=== PATIENT | male | born 1990 | race Two or more races ===

== ENCOUNTER 2021-09-03 15:36 | Emergency (ER) | payer SELFPAY ==
[~2021-09-03] VITALS: Ht 170.2 cm; Wt 77.1 kg
[2021-09-03 15:48] VITALS: BP 148/71
[2021-09-03] MEDS ORDERED: cefTRIAXone SOD 1,000 MG VL IM ONE (18:30)
== END 2021-09-03 18:57 | disposition home or self-care (01) ==
LOC: ER 15:36 → EDBD 15:36 → ER 18:57
DX: S01.01XA Laceration without foreign body of scalp, initial encounter (principal); S01.81XA Laceration without foreign body of other part of head, initial encounter; F10.10 Alcohol abuse, uncomplicated; W22.8XXA Striking against or struck by other objects, initial encounter; Y93.89 Activity, other specified; Y92.89 Other specified places as the place of occurrence of the external cause; Y99.8 Other external cause status
CPT/HCPCS: 12001; 12011; 70450; 70486; 72125; 96372; 99284; J0696

== ENCOUNTER 2021-09-30 21:13 | Emergency (ER) | payer MEDICAID, OTHER ==
[~2021-09-30] VITALS: Ht 170.2 cm; Wt 72.6 kg
[2021-09-30 21:15] VITALS: BP 122/65
== END 2021-09-30 23:17 | disposition home or self-care (01) ==
LOC: ER 21:16
DX: S01.112D Laceration without foreign body of left eyelid and periocular area, subsequent encounter (principal); S01.01XD Laceration without foreign body of scalp, subsequent encounter; X58.XXXD Exposure to other specified factors, subsequent encounter

== ENCOUNTER 2024-10-31 21:45 | Inpatient (IN) | payer MEDICAID ==
[~2024-10-31] VITALS: Ht 167.6 cm; Wt 68.2 kg
--- NOTE | 2024-10-31 22:02 | ED.PDOC ---
GI ASSESSMENT HPI Comments 34 year old male came to ER due to abdominal pain. Patient has been having abdominal pain since last night. Abdominal pain localized at the right upper quadrant/ epigastric area associated with nausea. Denies any vomiting, changes in bowel habits or urinary symptoms. Denies any abdominal surgeries. Denies any drug use or recent intake of alcohol. 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 Notes Allergies: Coded Allergies: NO KNOWN ALLERGIES (Unverified , 09/03/21) Information Source: Patient Mode of Arrival: EMS Timing: Hours Duration: Since onset Prehospital treatment: None Quality: Aching Vomitus: None Stool: Normal Severity: Moderate Recent: None Pain Location: Epigastric, RUQ Modifying Factors: Nothing Associated sign and symptoms: Nausea, Abdominal Pain Past Medical History PAST MEDICAL HISTORY: Denies Surgical History: Denies all surgeries Family History Family History: Unknown Social History Smoker: Non-Smoker Alcohol: Occasionally Drugs: Denies Drug Use Lives In: Home Constitutional: denies: chills, diaphoresis, fatigue, fever, malaise, sweats, weakness, others EENTM: denies: blurred vision, double vision, ear bleeding, ear discharge, ear drainage, ear pain, ear ringing, eye pain, eye redness, hearing loss, mouth pain, mouth swelling, nasal discharge, nose bleeding, nose congestion, nose pain, photophobia, tearing, throat pain, throat swelling, voice changes, others Respiratory: denies: cough, hemoptysis, orthopnea, SOB at rest, shortness of breath, SOB with excertion, stridor, wheezing, others Cardiovascular: denies: chest pain, dizzy spells, diaphoresis, Dyspnea on exertion, edema, irregular heart beat, left arm pain, lightheadedness, palpitations, PND, syncope, others Gastrointestinal: reports: abdominal pain, nausea; denies: abdomen distended, blood streaked bowels, constipated, diarrhea, dysphagia, difficulty swallowing, hematemesis, melena, poor appetite, poor fluid intake, rectal bleeding, rectal pain, vomiting, others Genitourinary: denies: burning, dysuria, flank pain, frequency, hematuria, incontinence, penile discharge, penile sore, pain, testicle pain, testicle swelling, urgency, others Neurological: denies: dizziness, fainting, headache, left sided numbness, left sided weakness, numbness, paresthesia, pre-existing deficit, right sided numbne ss, right sided weakness, seizure, speech problems, tingling, tremors, weakness, others Musculoskeletal: denies: back pain, gout, joint pain, joint swelling, muscle pain, muscle stiffness, neck pain, others Integumetry: denies: bruises, change in color, change in hair/nails, dryness, laceration, lesions, lumps, rash, wounds, others Allergic/Immunocompromised: denies: Difficulty Healing, Frequent Infections, Hives, Itching, others Hematologic/Lymphatic: denies: anemia, blood clots, easy bleeding, easy bruising, swollen glands, others Endocrine: denies: excessive hunger, excessive sweating, excessive thirst, excessive urination, flushing, intolerance to cold, intolerance to heat, unexplained weight gain, unexplained weight loss, others Psychiatric: denies: anxiety, bipolar disorder, depression, hopeless, panic disorder, schizophrenia, sleepless, suicidal, others Physical Exam General Appearance: No Apparent Distress, Normal HEENT: Normal ENT Inspection, Pharynx Normal, TMs Normal Neck: Full Range of Motion, Non-Tender, Normal, Normal Inspection Respiratory: Chest Non-Tender, Lungs Clear, No Accessory Muscle Use, No Respiratory Distress, Normal Breath Sounds Cardiovascular: No Edema, No JVD, No Murmur, No Gallop, Normal Peripheral Pulses, Regular Rate/Rhythm Breast Exam: Deferred Gastrointestinal: Epigastric, No Organomegaly, No Pulsatile Mass, Normal Bowel Sounds, RUQ, Soft, Tenderness Genitalia: Deferred Pelvic: Deferred Rectal: Deferred Extremities: No calf tenderness, Normal capillary refill, Normal inspection, Normal range of motion, Non-tender, No pedal edema Musculoskeletal : Apperance: Normal Neurologic: Alert, 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 Was a procedure done?: No GI differential Dx Differential Diagnosis: Cholecystitis, Constipation, Diverticular disease, Gastritis/PUD, Gastroenteritis, Hernia, Hepatitis, Pancreatitis, UTI, Urolithiasis X-Ray, Labs, Meds, VS Vital Signs Date Time Temp Pulse Resp B/P (MAP) Pulse Ox O2 Delivery O2 Flow Rate FiO2 10/31/24 21:47 98.0 93 16 123/77 (92) 96 98.0 Lab Test 10/31/24 22:02 Range/Units White Blood Count 11.7 H 4.4-10.8 10^3/uL Red Blood Count 4.99 4.5-5.90 10^6/uL Hemoglobin 16.8 13.5-17.5 g/dL Hematocrit 48.0 41.0-53.0 % Mean Corpuscular Volume 96.2 80.0-100.0 fL Mean Corpuscular Hemoglobin 33.6 H 28.0-32.0 pg Mean Corpuscular Hemoglobin Concent 34.9 32.0-36.0 g/dL Red Cell Distribution Width 12.1 11.8-14.3 % Platelet Count 271 140-450 10^3/uL Mean Platelet Volume 7.3 6.9-10.8 fL Neutrophils (%) (Auto) 75.2 37.0-80.0 % Lymphocytes (%) (Auto) 16.8 10.0-50.0 % Monocytes (%) (Auto) 6.9 0.0-12.0 % Eosinophils (%) (Auto) 0.9 0.0-7.0 % Basophils (%) (Auto) 0.2 0.0-2.0 % Neutrophils # (Auto) 8.8 H 1.6-8.6 10 ^3/uL Lymphocytes # (Auto) 2.0 0.4-5.4 10 ^3/uL Monocytes # (Auto) 0.8 0-1.3 10 ^3/uL Eosinophils # (Auto) 0.1 0-0.8 10 ^3/uL Basophils # (Auto) 0 0-0.2 10 ^3/uL Nucleated Red Blood Cells 0.1 % Sodium Level 141 136-145 mmol/L Potassium Level 3.9 3.5-5.1 mmol/L Chloride Level 106 98-107 mmol/L Carbon Dioxide Level 28 20-31 mmol/L Anion Gap 7 5-15 Blood Urea Nitrogen 11 9-23 mg/dL Creatinine 1.15 0.700-1.30 mg/dL Glomerular Filtration Rate Calc 87 >90 mL/min BUN/Creatinine Ratio 9.6 L 10.0-20.0 Serum Glucose 115 H 74-106 mg/dL Calcium Level 10.1 8.7-10.4 mg/dL Total Bilirubin 0.6 0.2-1.0 mg/dL Aspartate Amino Transferase (AST) 17 13-40 U/L Alanine Aminotransferase (ALT) 18 7-40 U/L Alkaline Phosphatase 61 46-116 U/L Total Protein 7.4 5.7-8.2 g/dL Albumin 5.0 H 3.2-4.8 g/dL Lipase 31 12-53 U/L Plasma/Serum Blood Alcohol < 3.0 <10 mg/dL PROCEDURE(s): GBUS - GALLBLADDER INDICATION: abdominal pain TECHNIQUE: Multiple real-time sonographic images of the abdomen were obtained. COMPARISON: None FINDINGS: The liver is homogenous in echogenicity and measures 14. cm. No intrahepatic biliary ductal dilatation is noted. No hepatic masses masses were seen. The gallbladder wall measures 2 mm. There is no cholelithiasis seen. The common duct measures 4 mm. No pericholecystic fluid. Hydropic/distended gallbladder. The right kidney measures 10.3 cm. The right renal echogenicity, contour and cortical thickness are within normal limits. The imaged portion of the pancreas is unremarkable. IMPRESSION: 1. No sonographic evidence of cholelithiasis. 2. Hydropic /distended gallbladder. If there is concern for cholecystitis, recommend HIDA scan to further characterize. Time of 1ST Reevaluation: 21:53 Reevaluation 1ST: Unchanged Time of 2ND Reevaluation: 00:34 Reevaluation 2ND: Unchanged Patient Education/Counseling: Diagnosis, Treatment, Prognosis, Need For Follow Up Family Education/Counseling: No Family Present Additional Information -Reviewed patient's previous visit(s): None - The following tests were ordered, and results were reviewed by me: - Additional information was gathered from interviewing the following independent Historian: - I reviewed and agreed with the following test results read by other provider: - I discussed treatments and results with medical personnel and: patient Comprehensive systems review obtained and negative except for what is stated in the HPI. the workup shows a distended GB, without any other findings. pt's symptoms are not improved. pt has no PCP. i will have pt admitted for further workups Departure 1 Departure Time of Disposition: 00:36 Impression: Primary Impression: Abdominal pain Qualified Codes: R10.13 - Epigastric pain Disposition: ADMITTED INPATIENT Admit to: Med Surg Condition: Stable Discharged With: Self Critical Care Note Critical Care Time?: Yes (55 min-critical care time only) Critical care comment: due to concerns for patient's condition deteriorating, the care required my highest level of attention and readiness to intervene. i assessed the patient's condition, ordered the proper tests and treatments, reassessed for response and reviewed the results. i communicated with medical personnel and formulated a plan of care. total critical care time does not include any procedures Stability Stability form required: No Heart Score Heart Score: Heart Score Response (Comments) Value History N/A 0 EKG N/A 0 Age N/A 0 Risk Factors N/A 0 Troponin N/A 0 Total 0 I personally scribed for EDUIN LOZANO MD ([email or web address]) on 10/31/24 at 22:02. Electronically submitted by Jamie Murrell ([employer]). I personally scribed for EDUIN LOZANO MD ([email or web address]) on 10/31/24 at 22:41. Electronically submitted by Jamie Murrell ([email or web address]). EDUIN LOZANO MD Oct 31, 2024 22:02
[2024-10-31 22:22] LABS: Basophils # (auto) 0 10 ^3/uL (0-0.2); Basophils % (auto) 0.2 % (0.0-2.0); Eosinophils # (auto) 0.1 10 ^3/uL (0-0.8); Eosinophils % (auto) 0.9 % (0.0-7.0); Hemoglobin 16.8 g/dL (13.5-17.5); Lymphocytes % (auto) 16.8 % (10.0-50.0); Mean Corpuscular Hemoglobin 33.6 pg (28.0-32.0); Mean Corpuscular Hgb Conc. 34.9 g/dL (32.0-36.0); Mean Corpuscular Volume 96.2 fL (80.0-100.0); Monocytes # (auto) 0.8 10 ^3/uL (0-1.3); Monocytes % (auto) 6.9 % (0.0-12.0); Neutrophils # (auto) 8.8 10 ^3/uL (1.6-8.6); Neutrophils % (auto) 75.2 % (37.0-80.0); Nucleated Red Blood Cells % 0.1 %; Platelet Count (auto) 271 10^3/uL (140-450); Red Blood Cells 4.99 10^6/uL (4.5-5.90); Red Cell Distribution Width 12.1 % (11.8-14.3); White Blood Cell 11.7 10^3/uL (4.4-10.8)
[2024-10-31 22:35] LABS: Alanine Aminotransferase 18 U/L (7-40); Alkaline Phosphatase 61 U/L (46-116); Anion Gap 7 (5-15); Aspartate Aminotransferase 17 U/L (13-40); BUN/Creatinine Ratio 9.6 (10.0-20.0); Bilirubin, Total 0.6 mg/dL (0.2-1.0); Blood Urea Nitrogen 11 mg/dL (9-23); Calcium 10.1 mg/dL (8.7-10.4); Carbon Dioxide 28 mmol/L (20-31); Chloride 106 mmol/L (98-107); Lipase 31 U/L (12-53); Potassium 3.9 mmol/L (3.5-5.1); Sodium 141 mmol/L (136-145); Total Protein 7.4 g/dL (5.7-8.2)
--- NOTE | 2024-10-31 22:37 | DVH ---
INDICATION: abdominal pain TECHNIQUE: Multiple real-time sonographic images of the abdomen were obtained. COMPARISON: None FINDINGS: The liver is homogenous in echogenicity and measures 14. cm. No intrahepatic biliary ducta l dilatation is noted. No hepatic masses masses were seen. The gallbladder wall measures 2 mm. There is no cholelithiasis seen. The common duct measures 4 mm . No pericholecystic fluid. Hydropic/distended gallbladder. The right kidney measures 10.3 cm. The right renal echogenicity, contour and cortical thickness are within normal limits. The imaged portion of the pancreas is unremarkable. IMPRESSION: 1. No sonographic evidence of cholelithiasis. 2. Hydropic /distended gallbladder. If there is concern for cholecystitis, [facility]
[2024-10-31 22:45] LABS: Glucose 115 mg/dL (74-106)
[2024-10-31 23:18] LABS: Blood Alcohol < 3.0 mg/dL (<10)
[2024-11-01] VITALS (7 sets, daily range): BP systolic 119–147; BP diastolic 76–92; PULSE 66–109; RESP 16–18; TEMP 97.5–98.6; O2SAT 96–99
[2024-11-01 01:51] LABS: Urine Bacteria None Seen /hpf (None Seen)
[2024-11-01 02:12] LABS: Urine Blood Negative /uL (Negative); Urine Clarity Clear (Clear); Urine Color Light-Yellow (Yellow); Urine Protein, UAD Negative (Negative); Urine Specific Gravity 1.016 (1.001-1.035); Urine Squamous Epithelial Cell None Seen /hpf (<5); Urine Urobilinogen Normal (Negative); Urine WBC 1 /HPF (0-3); Urine pH 6.5 (5.0-9.0)
--- NOTE | 2024-11-01 06:59 | DVHHP2 ---
History of Present Illness Reason for Visit: abd pain History of Present Illness 34-year-old male no past medical history no surgical history chief complaint patient states he complain of the epigastric and abdominal pain he has been going on since last night patient states that the pain radiates to his right lower abdomen and flank also. He feels like it is a stabbing pain that is off and on nothing makes it better nothing makes it worse. He denies any nausea or vomiting no diarrhea no fever with the pain. He was concerned that maybe he might have a Crohn's disease or colitis because of the family history so he comes in for evaluation. When evaluating patient's labs and imaging white count was 11.7 glucose was 115 alcohol was negative UA was negative gallbladder showed distended with 4 mm CBD recommended HIDA scan. With these findings we will admit order and if abnormal we will need to consider General surgery consult versus GI consult Past Medical History denies any medical history Past Surgical History denies any surgical history Family History Reviewed, non-contributory to the management of this case. Past Social History Patient does smoke by history but denies drug or alcohol use Review of Systems Constitutional: No: Fever, Chills, Sweats, Weakness, Malaise, Other Eyes: No: Pain, Vision change, Conjunctivae inflammation, Eyelid inflammation, Other, Redness ENT: No: Ear pain, Ear discharge, Nose pain, Nose discharge, Nose congestion, Mouth pain, Mouth swelling, Throat pain, Throat swelling, Other Respiratory: No: Cough, Dry, Shortness of breath, SOB with excertion, Wheezing, Hemoptysis, Pleuritic Pain, Sputum, Wheezing, Other Cardiovascular: No: Chest Pain, Palpitations, Orthopnea, Paroxysmal Noc. Dyspnea, Edema, Lt Headedness, Other Gastrointestinal: Nausea, Vomiting, Abdominal Pain; No: Diarrhea, Constipation, Melena, Hematochezia, Other Genitourinary: No Dysuria, No Frequency, No Incontinence, No Hematuria, No Retention, No Other Musculoskeletal: No: other, neck pain, shoulder pain, arm pain, back pain, hand pain, leg pain, foot pain Skin: No: Rash, Lesions, Jaundice, Bruising, Other Neurological: No: Weakness, Numbness, Incoordination, Change in speech, Confusion, Seizures, Other Allergies: Coded Allergies: NO KNOWN ALLERGIES (Unverified , 1/30/22) Exam Vital Signs Vital Signs Date Time Temp Pulse Resp B/P (MAP) Pulse Ox O2 Delivery O2 Flow Rate FiO2 11/01/24 02:20 97.7 84 16 116/72 (87) 95 97.7 11/01/24 01:26 Room Air* 0 21 21 General Appearance: Alert, Oriented X3, Cooperative, No acute distress HEENT: Atraumatic, PERRLA, EOMI, Mucous membr. moist/pink Respiratory: Clear to auscultation, Normal air movement Cardiovascular: Regular rate, Normal S1, Normal S2, No murmurs Abdominal: Normal bowel sounds, Soft, No tenderness, No hepatospenomegaly, No masses Extremities: No clubbing, No cyanosis, No edema, Normal pulses, No tenderness/swelling Skin: No rashes, No breakdown, No significant lesion Neuro: Normal speech, Strength at 5/5 X4 ext, Normal tone, Sensation intact, Cranial nerves 3-12 NL Psych/Mental Status: Mental status NL, Mood NL Labs/Xrays Abdominal ultrasound shows gallbladder distention common bile duct 4 mm I reviewed labs, imaging CT scan abdomen pelvis, EKG and all diagnostic studies on this patient from ED records and the medical chart Labs Test 11/01/24 01:24 10/31/24 22:02 Range/Units Urine Color Light-yellow Yellow Urine Clarity Clear Clear Urine pH 6.5 5.0-9.0 Urine Specific [place] 1.016 1.001-1.035 Urine Protein Negative Negative Urine Ketones Negative Negative Urine Blood Negative Negative /uL Urine Nitrite Negative Negative Urine Bilirubin Negative Negative Urine Urobilinogen Normal Negative mg/dL Urine Leukocyte Esterase Negative Negative /uL Urine RBC 1 0 - 3 /hpf Urine Microscopic WBC 1 0-3 /HPF Urine Squamous Epithelial Cells None seen <5 /hpf Urine Bacteria None seen None Seen /hpf Urine Glucose Normal Normal mg/dL White Blood Count 11.7 H 4.4-10.8 10^3/uL Red Blood Count 4.99 4.5-5.90 10^6/uL Hemoglobin 16.8 13.5-17.5 g/dL Hematocrit 48.0 41.0-53.0 % Mean Corpuscular Volume 96.2 80.0-100.0 fL Mean Corpuscular Hemoglobin 33.6 H 28.0-32.0 pg Mean Corpuscular Hemoglobin Concent 34.9 32.0-36.0 g/dL Red Cell Distribution Width 12.1 11.8-14.3 % Platelet Count 271 140-450 10^3/uL Mean Platelet Volume 7.3 6.9-10.8 fL Neutrophils (%) (Auto) 75.2 37.0-80.0 % Lymphocytes (%) (Auto) 16.8 10.0-50.0 % Monocytes (%) (Auto) 6.9 0.0-12.0 % Eosinophils (%) (Auto) 0.9 0.0-7.0 % Basophils (%) (Auto) 0.2 0.0-2.0 % Neutrophils # (Auto) 8.8 H 1.6-8.6 10 ^3/uL Lymphocytes # (Auto) 2.0 0.4-5.4 10 ^3/uL Monocytes # (Auto) 0.8 0-1.3 10 ^3/uL Eosinophils # (Auto) 0.1 0-0.8 10 ^3/uL Basophils # (Auto) 0 0-0.2 10 ^3/uL Nucleated Red Blood Cells 0.1 % Sodium Level 141 136-145 mmol/L Potassium Level 3.9 3.5-5.1 mmol/L Chloride Level 106 98-107 mmol/L Carbon Dioxide Level 28 20-31 mmol/L Anion Gap 7 5-15 Blood Urea Nitrogen 11 9-23 mg/dL Creatinine 1.15 0.700-1.30 mg/dL Glomerular Filtration Rate Calc 87 >90 mL/min BUN/Creatinine Ratio 9.6 L 10.0-20.0 Serum Glucose 115 H 74-106 mg/dL Calcium Level 10.1 8.7-10.4 mg/dL Total Bilirubin 0.6 0.2-1.0 mg/dL Aspartate Amino Transferase (AST) 17 13-40 U/L Alanine Aminotransferase (ALT) 18 7-40 U/L Alkaline Phosphatase 61 46-116 U/L Total Protein 7.4 5.7-8.2 g/dL Albumin 5.0 H 3.2-4.8 g/dL Lipase 31 12-53 U/L Plasma/Serum Blood Alcohol < 3.0 <10 mg/dL Assessment/Plan Assessment/Plan acute intractable abdominal pain us found to have distended gallbladder with cbd 4mm will order hida scan fu results npo ivf ordered morphine prn pain if hida scan abnormal will need to consult gi ordered ct scan eval for kidney stone since with flank pain acute leukocytosis ordered zosyn for now tobacco dependence enc abstinence fen/ppx ivf npo scd no dvt ppx since pt is ambulatory protonix plan admit to medicine Plan discussed with: Patient Date of Service: Nov 01, 2024 Billing Provider: ELAN WILLIAMSON DNP Common Visit Codes: [id number] INP/OBS CARE (HIGH) ELAN WILLIAMSON DNP Nov 01, 2024 06:59
[2024-11-01] MEDS ORDERED: ONDANSETRON HCL 4 MG/2 ML VIAL IV PRN (08:00)
[2024-11-01] MEDS ORDERED: MORPHINE SULFATE INJ 2 MG/ml SYRG IV PRN (08:00)
[2024-11-01] MEDS ORDERED: DOCUSATE SOD 100 MG CAP PO PRN (08:00)
[2024-11-01] MEDS ORDERED: NITROGLYCERIN 0.4 MG SL TAB SL PRN (08:00)
[2024-11-01] MEDS: PIPERACILLIN-TAZOB 3.375GM 100 ML IV ONE (08:45)
[2024-11-01] MEDS: SODIUM CHLORIDE 0.9% 1,000 ML IV SCH (08:45)
[2024-11-01] MEDS: PANTOPRAZOLE 40 MG/10 ML VIAL INJ IV ONE (08:45)
--- NOTE | 2024-11-01 13:17 | DVH ---
Exam: CT CT AB PEL WO CON-NO ORAL OR IV History: eval for acute abdominal pain Comparison Study: None available at time of dictation. TECHNIQUE: Multidetector CT of the abdomen was performed from lung bases to pubic symphysis. Imaging was performed without IV contrast. Axial, coronal and sagittal multiplanar reformats were obtained fr om the axial data set by the technologist. Radiation Dose Information: CT Dose: CTDI volume is 5.97 mGy. Dose-length product is 358.58 mGy*cm FINDINGS: Evaluation of solid organs is limited due to lack of intravenous contrast use. Findings: Lung Bases: No acute or significant lung base finding. Normal heart size. No pleural or pericardial effusion. Liver: The liver is normal in size. No focal lesions. Gallbladder and Biliary Tree: Unremarkable Spleen: Unremarkable Pancreas: The pancreas is grossly normal in appearance. Adrenal Glands: Unremarkable Kidneys: Kidneys are grossly normal without calculi or hydronephrosis. Bladder: Grossly unremarkable for degree of distention. Bowel: The stomach is grossly normal in appearance. Small bowel and colon are normal in caliber and d istribution. No CT findings to suggest bowel obstruction. Stool is noted throughout the colon The oma endix is visualized and appears normal. Ascites: Absent Lymphadenopathy: No mesenteric, retroperitoneal or periportal lymphadenopathy. Abdominal Wall and Mesentery: Unremarkable. Vasculature: The visualized abdominal aorta is normal in size and caliber. Evaluation of abdominal a nd pelvic vessels is limited due to lack of intravenous contrast. Pelvic Organs: Unremarkable Musculoskeletal: No aggressive focal bony lesions, acute fractures or dislocation. Soft tissues: Unremarkable IMPRESSION: 1. No CT findings to suggest bowel obstruction. Stool noted throughout the colon. 2. No calcified gallstones 3. No nephrolithiasis or hydronephrosis. 4. Appendix visualized and appears normal Radiation optimization: All CT scans at this facility use at least one of these dose optimization waqar hniques: automated exposure control mA and/or kV adjustment per patient size (includes targeted exam s where dose is matched to clinical indication) or iterative reconstruction. HS:Y
[2024-11-01] MEDS: PIPERACILLIN-TAZOB 3.375GM 100 ML IV SCH (14:04)
[2024-11-02] VITALS (7 sets, daily range): BP systolic 103–134; BP diastolic 60–78; PULSE 66–103; RESP 16–20; TEMP 97.8–98.4; O2SAT 95–99
[2024-11-02 06:37] LABS: Basophils # (auto) 0 10 ^3/uL (0-0.2); Basophils % (auto) 0.3 % (0.0-2.0); Eosinophils # (auto) 0.1 10 ^3/uL (0-0.8); Hematocrit 46.2 % (41.0-53.0); Hemoglobin 16.1 g/dL (13.5-17.5); Lymphocytes # (auto) 1.9 10 ^3/uL (0.4-5.4); Lymphocytes % (auto) 22.7 % (10.0-50.0); Mean Corpuscular Hemoglobin 33.8 pg (28.0-32.0); Mean Corpuscular Hgb Conc. 34.9 g/dL (32.0-36.0); Mean Corpuscular Volume 96.8 fL (80.0-100.0); Monocytes # (auto) 0.6 10 ^3/uL (0-1.3); Monocytes % (auto) 7.5 % (0.0-12.0); Neutrophils # (auto) 5.9 10 ^3/uL (1.6-8.6); Neutrophils % (auto) 68.5 % (37.0-80.0); Nucleated Red Blood Cells % 0.1 %; Platelet Count (auto) 219 10^3/uL (140-450); Red Blood Cells 4.77 10^6/uL (4.5-5.90); Red Cell Distribution Width 11.9 % (11.8-14.3); White Blood Cell 8.6 10^3/uL (4.4-10.8)
[2024-11-02 06:50] LABS: Alanine Aminotransferase 13 U/L (7-40); Anion Gap 10 (5-15); BUN/Creatinine Ratio 12.5 (10.0-20.0); Blood Urea Nitrogen 13 mg/dL (9-23); Calcium 9.6 mg/dL (8.7-10.4); Carbon Dioxide 24 mmol/L (20-31); Sodium 141 mmol/L (136-145); Total Protein 6.6 g/dL (5.7-8.2)
[2024-11-02 06:51] LABS: Albumin 4.4 g/dL (3.2-4.8); Alkaline Phosphatase 46 U/L (46-116); Aspartate Aminotransferase 9 U/L (13-40); Chloride 107 mmol/L (98-107); Glucose 60 mg/dL (74-106)
[2024-11-02 06:52] LABS: Bilirubin, Total 1.2 mg/dL (0.2-1.0)
--- NOTE | 2024-11-02 10:15 | DVH ---
Procedure: NM NM HIDA SCAN Exam Date: 11/02/2024 07:40 AM Clinical History: eval for stone obstruction in bile duct , infection Comparison Study: 11/01/2024 Nuclear Medicine Hepatobiliary Scan. Technique: Following the intravenous administration of 4.3 mCi of technetium 99m labeled Choletec multiple plana r abdominal planar images were obtained in anterior projection in 5 minute intervals for45 minutes . Right lateral images were obtained at 45 minutes after injection. Findings: The liver appears grossly normal in size. There is no abnormal persistence of the cardiac or blood po ol activity. There is prompt visualization of the gallbladder and excretion of activity into the smal l bowel. Impression: Unremarkable hepatobiliary study without evidence of acute cholecystitis.
[2024-11-02] MEDS: PANTOPRAZOLE 40 MG/10 ML VIAL INJ IV SCH (10:55)
[2024-11-02] MEDS: SUCRALFATE 1 GM/10 ML ORAL SUSP PO SCH (11:15)
--- NOTE | 2024-11-02 14:54 | DVHPNRES ---
Progress Note Date Seen: Nov 02, 2024 Resident Creating Document: CORNELLSHAHRIARRACHEALNOE RESIDENT Medical Necessity Reason Pt with a Central, PICC or Fol: No Subjective Review of Systems Patient was a 34-year-old male with no significant past medical history presented to the ED with a chief complaint of abdominal pain for 1 day prior to admission. Patient reported that since the last 2 weeks he has been having decreased appetite with the symptoms of acid reflux, heartburn. He also reported mild dysphagia to solid foods and loss of about 15 lb of weight in the last 2-3 weeks. Saturday evening he started to have sudden onset right sided abdominal pain upper to the lower quadrant and also felt the pain in the right side of the back around the costovertebral angle. Patient denied any radiation to the groin. No dysuria or hematuria, no diarrhea, no fever or chills. Patient denied nausea or vomiting. Patient reported in 2018 he had episode of blood in stool following which he was hospitalized but he never got a colonoscopy done. Past medical history: None Past surgical history: None Social history: Patient lives with the family and denies alcohol use but smokes marijuana occasionally Home medications: None Review of systems Reports abdominal pain has improved significantly since he got admitted to the hospital Denies nausea, vomiting, diarrhea, fever or chills Objective vital signs Vital Sign Date Time Temp Pulse Resp B/P (MAP) Pulse Ox O2 Delivery O2 Flow Rate FiO2 11/02/24 13:00 98.0 86 18 103/75 (84) 99 98.0 11/02/24 08:00 Room Air* 0 21 Total Intake and Output 11/01/24 11/01/24 11/02/24 15:00 23:00 07:00 Intake Total 100 ml 1100 ml 0 ml Balance 100 ml 1100 ml 0 ml medications Current Medications Medications Dose Ordered Sig/Wilbert Route Start Time Stop Time Status Last Admin Dose Admin Sodium Chloride 1,000 ml @ 120 mls/hr [id number] IV 11/01/24 08:00 11/02/24 10:55 120 MLS/HR Ondansetron HCl 4 mg Q4HP PRN IV 11/01/24 08:00 Morphine Sulfate 2 mg Q4HPRN PRN IV 11/01/24 08:00 Pantoprazole Sodium 40 mg DAILY IV 11/02/24 10:00 11/02/24 10:55 40 MG Sucralfate 1 gm TID@0600,1130,2200 PO 11/02/24 11:30 11/02/24 11:15 1 GM Examination Constitutional: patient is alert and oriented to time, place and person and does not appear to be in acute distress Gen - no pallor, no icterus, no cyanosis, no clubbing, no LAD, no edema . Skin - Patients skin is warm and dry.. HEENT - normocephalic, atraumatic, moist mucous membranes. Neck - full ROM, no LAD, no JVD Pulmonary - B/L equal breath sounds. no crackles , no wheezing, no stridor. cardiovascular - normal S1,S2 heard. No added sounds, no murmurs heard. GI - soft abdomen with minimal tenderness to palpation in right upper and the lower quadrants. no hepatospleenomegaly. No CVA tenderness, normoactive bowel sounds Neurological - Bilateral upper extremity strength 5/5, bilateral lower extremity strength 5/5, no facial droop, normal speech, no tremor, no sensory deficiets. laboratory and microbiology Laboratory Tests 11/02/24 05:22 Test 11/02/24 05:22 Range/Units Serum Glucose 60 L 74-106 mg/dL Problem List/Assessment/Plan Problem List/Assessment/Plan Assessment Acute intractable abdominal pain Dyspepsia ? Acute gastritis with significant weight loss Distended gallbladder, ruled out acute cholecystitis Gallbladder ultrasound IMPRESSION: 1. No sonographic evidence of cholelithiasis. 2. Hydropic /distended gallbladder. CT abdomen pelvis without contrast IMPRESSION: 1. No CT findings to suggest bowel obstruction. Stool noted throughout the colon. 2. No calcified gallstones 3. No nephrolithiasis or hydronephrosis. 4. Appendix visualized and appears normal Nuclear medicine HIDA scan Impression: Unremarkable hepatobiliary study without evidence of acute cholecystitis. Plan - Protonix IV - sucralfate t.i.d. - on full liquid diet - GI consulted as the patient had mild dysphagia and significant weight loss 15 lb in 2-3 weeks - IV fluids Goals of care discussed with the patient for over 23 minutes. Full code Plan discussed with Dr. Iglesia Johnson discussed with: Patient My Orders My Orders Orders - LEEANN FRAZIER RESIDENT Procedure Category Date Status Time Full Liq Diet DIET 3/31/25 Transmitted Lunch Sucralfate Susp PHA 11/02/24 In Process (Carafate Susp) 11:30 * [facility] Numerical Control Operator CONS 11/02/24 Transmitted 13:03 LEEANN FRAZIER RESIDENT Nov 02, 2024 14:54
[2024-11-02] MEDS ORDERED: ACETAMINOPHEN 325 MG TAB PO PRN (16:00)
--- NOTE | 2024-11-02 21:35 | DVHINCON2 ---
Date of service: Nov 02, [address] Busch Reason for Consultation Dysphagia weight loss and abdominal pain History of Present Illness 34-year-old male no past medical history admitted with complaint of the epigastric and right sided abdominal pain he has been going on since last night. Patient states that the pain radiates to his right lower abdomen and flank also. He feels like it is a stabbing pain that is off and on nothing makes it better nothing makes it worse. He denies any nausea or vomiting no diarrhea no fever with the pain. He was concerned that maybe he might have a Crohn's disease or colitis because of the family history so he comes in for evaluation. Patient on further questioning has been complaining of intermittent GERD and dysphagia for the last few weeks with 15 lb wt loss. He has poor appetite. Patient does have a history of marijuana use He has not had any prior endoscopy or colonoscopy Past Medical History Negative Family History: Patient reports no known family medical history. Allergies: Coded Allergies: NO KNOWN ALLERGIES (Unverified , 09/03/21) Current Medications Current Medications Medications (Trade) Dose Ordered Sig/Wilbert Route PRN Reason Start Time Stop Time Status Last Admin Pantoprazole Sodium (Protonix) 40 mg DAILY IV 11/02/24 10:00 11/02/24 10:55 Sucralfate (Carafate Susp) 1 gm TID@0600,1130,2200 PO 11/02/24 11:30 11/02/24 21:16 Acetaminophen (Tylenol Tablet) 650 mg Q6HP PRN PO PAIN SCALE 1-3 OR TEMP>100.4 11/02/24 16:00 Vital Signs Vital Signs Date Time Temp Pulse Resp B/P (MAP) Pulse Ox O2 Delivery O2 Flow Rate FiO2 11/02/24 21:07 98.1 86 20 134/71 (92) 95 98.1 11/02/24 20:00 Room Air* 0 21 Physical Exam General Appearance: Alert, Oriented X3, Cooperative, No acute distress HEENT: Atraumatic, PERRLA, EOMI, Mucous membr. moist/pink Respiratory: Clear to auscultation, Normal air movement Cardiovascular: Regular rate, Normal S1, Normal S2, No murmurs Abdominal: Normal bowel sounds, Soft, No tenderness, No hepatospenomegaly, No masses Extremities: No clubbing, No cyanosis, No edema, Normal pulses, No tenderness/swelling Skin: No rashes, No breakdown, No significant lesion Neuro: Normal speech, Strength at 5/5 X4 ext, Normal tone, Sensation intact, Cranial nerves 3-12 NL Psych/Mental Status: Mental status NL, Mood NL Labs/Diagnostic Data Labs Test 11/02/24 05:22 11/01/24 01:24 10/31/24 22:02 Range/Units White Blood Count 8.6 # 4.4-10.8 10^3/uL Red Blood Count 4.77 4.5-5.90 10^6/uL Hemoglobin 16.1 13.5-17.5 g/dL Hematocrit 46.2 41.0-53.0 % Mean Corpuscular Volume 96.8 80.0-100.0 fL Mean Corpuscular Hemoglobin 33.8 H 28.0-32.0 pg Mean Corpuscular Hemoglobin Concent 34.9 32.0-36.0 g/dL Red Cell Distribution Width 11.9 11.8-14.3 % Platelet Count 219 140-450 10^3/uL Mean Platelet Volume 7.7 6.9-10.8 fL Neutrophils (%) (Auto) 68.5 37.0-80.0 % Lymphocytes (%) (Auto) 22.7 10.0-50.0 % Monocytes (%) (Auto) 7.5 0.0-12.0 % Eosinophils (%) (Auto) 1.0 0.0-7.0 % Basophils (%) (Auto) 0.3 0.0-2.0 % Neutrophils # (Auto) 5.9 1.6-8.6 10 ^3/uL Lymphocytes # (Auto) 1.9 0.4-5.4 10 ^3/uL Monocytes # (Auto) 0.6 0-1.3 10 ^3/uL Eosinophils # (Auto) 0.1 0-0.8 10 ^3/uL Basophils # (Auto) 0 0-0.2 10 ^3/uL Nucleated Red Blood Cells 0.1 % Sodium Level 141 136-145 mmol/L Potassium Level 4.0 3.5-5.1 mmol/L Chloride Level 107 98-107 mmol/L Carbon Dioxide Level 24 20-31 mmol/L Anion Gap 10 5-15 Blood Urea Nitrogen 13 9-23 mg/dL Creatinine 1.04 0.700-1.30 mg/dL Glomerular Filtration Rate Calc 98 >90 mL/min BUN/Creatinine Ratio 12.5 10.0-20.0 Serum Glucose 60 L 74-106 mg/dL Calcium Level 9.6 8.7-10.4 mg/dL Total Bilirubin 1.2 H 0.2-1.0 mg/dL Aspartate Amino Transferase (AST) 9 L 13-40 U/L Alanine Aminotransferase (ALT) 13 7-40 U/L Alkaline Phosphatase 46 46-116 U/L Total Protein 6.6 5.7-8.2 g/dL Albumin 4.4 3.2-4.8 g/dL Urine Color Light-yellow Yellow Urine Clarity Clear Clear Urine pH 6.5 5.0-9.0 Urine Specific [place] 1.016 1.001-1.035 Urine Protein Negative Negative Urine Ketones Negative Negative Urine Blood Negative Negative /uL Urine Nitrite Negative Negative Urine Bilirubin Negative Negative Urine Urobilinogen Normal Negative mg/dL Urine Leukocyte Esterase Negative Negative /uL Urine RBC 1 0 - 3 /hpf Urine Microscopic WBC 1 0-3 /HPF Urine Squamous Epithelial Cells None seen <5 /hpf Urine Bacteria None seen None Seen /hpf Urine Glucose Normal Normal mg/dL Lipase 31 12-53 U/L Plasma/Serum Blood Alcohol < 3.0 <10 mg/dL CT SCAN ABD PELVIS IMPRESSION: 1. No CT findings to suggest bowel obstruction. Stool noted throughout the colon. 2. No calcified gallstones 3. No nephrolithiasis or hydronephrosis. 4. Appendix visualized and appears normal RUQ USG IMPRESSION: 1. No sonographic evidence of cholelithiasis. 2. Hydropic /distended gallbladder. If there is concern for cholecystitis, recommend HIDA scan to further characterize. HIDA SCAN Negative Problems(with codes): (1) GERD (gastroesophageal reflux disease) (2) Dysphagia (3) Weight loss (4) Marijuana use (5) Abdominal pain (6) ETOH abuse Plan/Recommendation Plan Protonix 40 mg IV q.12 hours Clear liquid diet advance to full liquid NPO after midnight I will schedule endoscopy on 11/03/24 Plan discussed with: Patient FRANCOIS BRYANT MD Nov 02, 2024 21:35
[2024-11-03] VITALS (8 sets, daily range): BP systolic 113–133; BP diastolic 65–82; PULSE 60–114; RESP 17–19; TEMP 97.8–98.5; O2SAT 96–100
[2024-11-03 06:54] LABS: Basophils # (auto) 0 10 ^3/uL (0-0.2); Basophils % (auto) 0.1 % (0.0-2.0); Eosinophils # (auto) 0.1 10 ^3/uL (0-0.8); Hematocrit 45.9 % (41.0-53.0); Hemoglobin 16.1 g/dL (13.5-17.5); Lymphocytes # (auto) 1.7 10 ^3/uL (0.4-5.4); Lymphocytes % (auto) 20.1 % (10.0-50.0); Mean Corpuscular Hemoglobin 33.7 pg (28.0-32.0); Mean Corpuscular Volume 96.3 fL (80.0-100.0); Monocytes # (auto) 0.7 10 ^3/uL (0-1.3); Monocytes % (auto) 8.8 % (0.0-12.0); Neutrophils # (auto) 5.9 10 ^3/uL (1.6-8.6); Nucleated Red Blood Cells % 0.1 %; Platelet Count (auto) 223 10^3/uL (140-450); Red Blood Cells 4.77 10^6/uL (4.5-5.90); White Blood Cell 8.4 10^3/uL (4.4-10.8)
[2024-11-03 07:00] LABS: INR 1.07 (0.9-1.15); Partial Thromboplastin Time 27.6 SEC (24.5-34.5); Prothrombin Time 11.3 sec (9.3-11.8)
[2024-11-03 07:01] LABS: Chloride 106 mmol/L (98-107); Potassium 4.1 mmol/L (3.5-5.1); Sodium 141 mmol/L (136-145)
[2024-11-03 07:02] LABS: Anion Gap 6 (5-15); Calcium 9.8 mg/dL (8.7-10.4); Carbon Dioxide 29 mmol/L (20-31)
[2024-11-03 07:07] LABS: BUN/Creatinine Ratio 12.6 (10.0-20.0); Blood Urea Nitrogen 13 mg/dL (9-23); Glucose 86 mg/dL (74-106)
[2024-11-03] MEDS ORDERED: fentaNYL CITRATE 100 MCG/2 ML VL ONE (14:20)
[2024-11-03] MEDS ORDERED: PROPOFOL 10 MG/ML 20 ML IV ONE ×2 (14:20→15:05)
--- NOTE | 2024-11-03 14:59 | DVHOP2 ---
Operative Report DATE OF OPERATION: 11/03/24 PROCEDURE: Upper Endoscopy with biopsy and dilate esophagus unguided PREOPERATIVE INDICATION: The patient is a 34 -year-old male undergoing endoscopy for GERD dysphagia and weight loss POSTOPERATIVE DIAGNOSES: 1. 0.5 cm sliding-type hiatal hernia with no significant erosive esophagitis 2. Mild gastritis otherwise normal examination up to the 2nd and 3rd part of the duodenum 3. GE junction was dilated with Ferro number [id number] PROCEDURE PERFORMED BY: Francois Bryant GI NURSE: Manuela SCOPE: Olympus videoendoscope. ASA CLASS: 2 PREOPERATIVE MEDICATIONS: Anesthesia as per Dr. Arizmendi; MAC had to be converted to GA PROCEDURE IN DETAIL: After obtaining an informed consent, the patient was placed on left lateral decubitus position. The patient was then sedated with the above medications. A bite block was placed between his teeth. The endoscope was then passed through the oropharynx, into the esophagus, and through the stomach and pylorus up to the second and third part of the duodenum. The endoscope was then withdrawn. The 2nd and 3rd part of the duodenal and the duodenal bulb were normal. Duodenal biopsies were obtained The pre-pyloric area and antrum showed mild gastritis. Gastric biopsies were obtained. On retroflexion the fundus cardia and angularis were normal. The endoscope was then withdrawn into the distal esophagus. Patient had a 0.5 cm sliding-type hiatal hernia with slightly irregular squamocolumnar junction but no significant esophagitis no stricture The remaining distal and proximal esophagus and oropharynx were unremarkable. The endoscope was then withdrawn. I passed a Frero dilator number 44 with no significant resistance. Repeat endoscopy confirmed adequate dilatation. There was no mucosal injury or bleeding. GE junction biopsies were obtained. The patient tolerated the procedure well without difficulty. COMPLICATIONS : None SPECIMENS: Duodenal biopsies Gastric biopsies GE junction biopsies DISPOSITION: Transfer back to the floor Stable PLAN: 1. Await for biopsy result 2. Will place pt on Protonix 40 mg po daily 3. Soft mechanical diet advance as tolerated 4. DC aspirin NSAIDs smoking alcohol 5. Patient had high tolerance to sedatives and has suspected to have possible polysubstance abuse or possible alcohol FRANCOIS BRYANT MD Nov 03, 2024 14:59
--- NOTE | 2024-11-03 21:52 | DVHPNRES ---
Progress Note Date Seen: Nov 03, 2024 Resident Creating Document: RACHEAL FRAZIERNOE RESIDENT Medical Necessity Reason Pt with a Central, PICC or Fol: No Subjective Review of Systems Reports abdominal pain has improved significantly tolerated full liquid diet well without any exacerbation of pain Denies nausea, vomiting, diarrhea, fever or chills Objective vital signs Vital Sign Date Time Temp Pulse Resp B/P (MAP) Pulse Ox O2 Delivery O2 Flow Rate FiO2 11/03/24 21:00 98.5 84 17 133/79 (97) 97 98.5 11/03/24 20:00 Room Air* 0 21 Total Intake and Output 11/02/24 11/02/24 11/03/24 15:00 23:00 07:00 Intake Total 1200 ml 350 ml Balance 1200 ml 350 ml medications Current Medications Medications Dose Ordered Sig/Wilbert Route Start Time Stop Time Status Last Admin Dose Admin Ondansetron HCl 4 mg Q4HP PRN IV 11/01/24 08:00 Pantoprazole Sodium 40 mg DAILY IV 11/02/24 10:00 11/03/24 08:51 40 MG Sucralfate 1 gm TID@0600,1130,2200 PO 11/02/24 11:30 11/03/24 21:16 1 GM Acetaminophen 650 mg Q6HP PRN PO 11/02/24 16:00 Examination Constitutional: patient is alert and oriented to time, place and person and does not appear to be in acute distress Gen - no pallor, no icterus, no cyanosis, no clubbing, no LAD, no edema . Skin - Patients skin is warm and dry.. HEENT - normocephalic, atraumatic, moist mucous membranes. Neck - full ROM, no LAD, no JVD Pulmonary - B/L equal breath sounds. no crackles , no wheezing, no stridor. cardiovascular - normal S1,S2 heard. No added sounds, no murmurs heard. GI - soft abdomen with no tenderness to palpation. no hepatospleenomegaly. No CVA tenderness, normoactive bowel sounds Neurological - Bilateral upper extremity strength 5/5, bilateral lower extremity strength 5/5, no facial droop, normal speech, no tremor, no sensory deficiets. laboratory and microbiology Laboratory Tests 11/03/24 06:11 Test 11/03/24 06:11 Range/Units Serum Glucose 86 74-106 mg/dL Problem List/Assessment/Plan Problem List/Assessment/Plan Assessment Acute intractable abdominal pain Dyspepsia ? Acute gastritis with significant weight loss Distended gallbladder, ruled out acute cholecystitis Gallbladder ultrasound IMPRESSION: 1. No sonographic evidence of cholelithiasis. 2. Hydropic /distended gallbladder. CT abdomen pelvis without contrast IMPRESSION: 1. No CT findings to suggest bowel obstruction. Stool noted throughout the colon. 2. No calcified gallstones 3. No nephrolithiasis or hydronephrosis. 4. Appendix visualized and appears normal Nuclear medicine HIDA scan Impression: Unremarkable hepatobiliary study without evidence of acute cholecystitis. Plan - Protonix IV - sucralfate t.i.d. - on full liquid diet - GI consulted as the patient had mild dysphagia and significant weight loss 15 lb in 2-3 weeks - Patient underwent upper EGD with biopsy and dilatation of the esophagus unguided, and it showed 5 cm sliding-type hiatal hernia with no significant erosive esophagitis, mild gastritis, GE junction was dilated with Ferro number 44 - IV fluids - patient was started on soft mechanical diet Goals of care discussed with the patient for over 23 minutes. Full code Plan discussed with Dr. Parekh Plan discussed with: Patient Dietary Evaluation Review Comments: diet as tolerated after NPO for procedure Expected Outcomes/Goals: maintain wt. avoid tobacco, drug and ETOH, improved GI health LEEANN FRAZIER RESIDENT Nov 03, 2024 21:52
[2024-11-04 01:00] VITALS: BP 116/63; PULSE 74; RESP 18; TEMP 97.9; O2SAT 97
[2024-11-04 05:00] VITALS: BP_SYST 108; BP_SYST 117; BP_DIAS 64; BP_DIAS 67; PULSE 71; PULSE 77; RESP 18; TEMP 97.9; TEMP 98.6; O2SAT 97; O2SAT 99
[2024-11-04 06:50] LABS: Anion Gap 6 (5-15); Carbon Dioxide 28 mmol/L (20-31); Sodium 141 mmol/L (136-145)
[2024-11-04 06:51] LABS: Calcium 9.7 mg/dL (8.7-10.4); Chloride 107 mmol/L (98-107)
[2024-11-04 06:56] LABS: BUN/Creatinine Ratio 11.6 (10.0-20.0); Blood Urea Nitrogen 10 mg/dL (9-23); Glucose 86 mg/dL (74-106)
[2024-11-04 07:15] LABS: Eosinophils # (auto) 0.1 10 ^3/uL (0-0.8); Neutrophils % (auto) 75.2 % (37.0-80.0)
[2024-11-04 07:17] LABS: Basophils # (auto) 0.1 10 ^3/uL (0-0.2); Basophils % (auto) 0.6 % (0.0-2.0); Eosinophils % (auto) 0.6 % (0.0-7.0); Hemoglobin 15.6 g/dL (13.5-17.5); Lymphocytes # (auto) 1.6 10 ^3/uL (0.4-5.4); Lymphocytes % (auto) 14.5 % (10.0-50.0); Mean Corpuscular Hemoglobin 34.7 pg (28.0-32.0); Mean Corpuscular Hgb Conc. 36.2 g/dL (32.0-36.0); Mean Corpuscular Volume 95.9 fL (80.0-100.0); Monocytes % (auto) 9.1 % (0.0-12.0); Neutrophils # (auto) 8.2 10 ^3/uL (1.6-8.6); Platelet Count (auto) 222 10^3/uL (140-450); Red Blood Cells 4.48 10^6/uL (4.5-5.90); White Blood Cell 10.9 10^3/uL (4.4-10.8)
[2024-11-04 07:40] VITALS: BP 115/67; PULSE 75; RESP 20; TEMP 97.9; O2SAT 99
[2024-11-04] MEDS: SUCCINYLCHOLINE CHLORIDE 20 MG/ML 10ML VIAL IV ONE (07:54)
[2024-11-04] MEDS ORDERED: SUCR1SUS5 PO (11:39)
[2024-11-04] MEDS ORDERED: PANT40TA2 PO (11:39)
[2024-11-04 11:59] VITALS: BP 115/67; PULSE 75; RESP 20; TEMP 97.9; O2SAT 99
[2024-11-04 12:49] VITALS: BP 141/86; PULSE 83; RESP 18; TEMP 97.8; O2SAT 96
--- NOTE | 2024-11-04 13:20 | DVHPN2 ---
Progress Note - Dictate Date Seen: Nov 04, 2024 (Late entryTime of visit 12 noon) Medical Necessity Reason Pt with a Central, PICC or Fol: No Subjective No new complaints Patient is tolerating diet There was no nausea vomiting or chest pain vital signs Vital Sign Date Time Temp Pulse Resp B/P (MAP) Pulse Ox O2 Delivery O2 Flow Rate FiO2 11/04/24 12:49 97.8 83 18 141/86 (104) 96 97.8 11/04/24 08:00 Room Air* 0 21 Total Intake and Output 11/03/24 11/03/24 11/04/24 15:00 23:00 07:00 Intake Total 100 ml 0 ml Balance 100 ml 0 ml objective General Appearance: Alert, Oriented X3, Cooperative, No acute distress HEENT: Atraumatic, PERRLA, EOMI, Mucous membr. moist/pink Respiratory: Clear to auscultation, Normal air movement Cardiovascular: Regular rate, Normal S1, Normal S2, No murmurs Abdominal: Normal bowel sounds, Soft, No tenderness, No hepatospenomegaly, No masses Extremities: No clubbing, No cyanosis, No edema, Normal pulses, No tenderness/swelling Skin: No rashes, No breakdown, No significant lesion Neuro: Normal speech, Strength at 5/5 X4 ext, Normal tone, Sensation intact, Cranial nerves 3-12 NL Psych/Mental Status: Mental status NL, Mood NL laboratory and microbiology Laboratory Tests 11/04/24 06:06 Test 11/04/24 06:06 Range/Units Serum Glucose 86 74-106 mg/dL Problems(with codes): (1) ETOH abuse (2) GERD (gastroesophageal reflux disease) (3) Weight loss (4) Dysphagia (5) Abdominal pain Prognosis Assessment plan EGD findings reviewed with the patient Minimal nonspecific findings of a small hiatal hernia less than 1 cm and minimal gastritis Protonix 40 mg p.o. daily Advance diet as tolerated Patient has been counseled against substance abuse Patient is cleared for discharge from GI point of view Outpatient follow up with GI Services as needed Dietary Evaluation Review Comments: diet as tolerated after NPO for procedure Expected Outcomes/Goals: maintain wt. avoid tobacco, drug and ETOH, improved GI health Plan discussed with: Patient FRANCOIS BRYANT MD Nov 04, 2024 13:20
--- NOTE | 2024-11-04 22:09 | DVHDSRES ---
Discharge Summary Date of Admission Resident Creating Document: LEEANN FRAZIER RESIDENT Nov 01, 2024 at 07:50 Date of Discharge: Nov 04, 2024 Admitting Diagnosis acute intractable abdominal pain acute leukocytosis tobacco dependence Wounds: none Labs/Diagnostic Data: Laboratory Results Test 11/04/24 06:06 11/03/24 06:11 11/02/24 05:22 11/01/24 01:24 White Blood Count 10.9 10^3/uL (4.4-10.8) Red Blood Count 4.48 10^6/uL (4.5-5.90) Hemoglobin 15.6 g/dL (13.5-17.5) Hematocrit 43.0 % (41.0-53.0) Mean Corpuscular Volume 95.9 fL (80.0-100.0) Mean Corpuscular Hemoglobin 34.7 pg (28.0-32.0) Mean Corpuscular Hemoglobin Concent 36.2 g/dL (32.0-36.0) Red Cell Distribution Width 12.0 % (11.8-14.3) Platelet Count 222 10^3/uL (140-450) Mean Platelet Volume 7.6 fL (6.9-10.8) Neutrophils (%) (Auto) 75.2 % (37.0-80.0) Lymphocytes (%) (Auto) 14.5 % (10.0-50.0) Monocytes (%) (Auto) 9.1 % (0.0-12.0) Eosinophils (%) (Auto) 0.6 % (0.0-7.0) Basophils (%) (Auto) 0.6 % (0.0-2.0) Neutrophils # (Auto) 8.2 10 ^3/uL (1.6-8.6) Lymphocytes # (Auto) 1.6 10 ^3/uL (0.4-5.4) Monocytes # (Auto) 1.0 10 ^3/uL (0-1.3) Eosinophils # (Auto) 0.1 10 ^3/uL (0-0.8) Basophils # (Auto) 0.1 10 ^3/uL (0-0.2) Nucleated Red Blood Cells 0.0 % Sodium Level 141 mmol/L (136-145) Potassium Level 4.0 mmol/L (3.5-5.1) Chloride Level 107 mmol/L (98-107) Carbon Dioxide Level 28 mmol/L (20-31) Anion Gap 6 (5-15) Blood Urea Nitrogen 10 mg/dL (9-23) Creatinine 0.86 mg/dL (0.700-1.30) Glomerular Filtration Rate Calc 118 mL/min (>90) BUN/Creatinine Ratio 11.6 (10.0-20.0) Serum Glucose 86 mg/dL (74-106) Calcium Level 9.7 mg/dL (8.7-10.4) Prothrombin Time 11.3 sec (9.3-11.8) Prothrombin Time INR 1.07 (0.9-1.15) Activated Partial Thromboplast Time 27.6 SEC (24.5-34.5) Total Bilirubin 1.2 mg/dL (0.2-1.0) Aspartate Amino Transferase (AST) 9 U/L (13-40) Alanine Aminotransferase (ALT) 13 U/L (7-40) Alkaline Phosphatase 46 U/L (46-116) Total Protein 6.6 g/dL (5.7-8.2) Albumin 4.4 g/dL (3.2-4.8) Urine Color Light-yellow (Yellow) Urine Clarity Clear (Clear) Urine pH 6.5 (5.0-9.0) Urine Specific [place] 1.016 (1.001-1.035) Urine Protein Negative (Negative) Urine Ketones Negative (Negative) Urine Blood Negative /uL (Negative) Urine Nitrite Negative (Negative) Urine Bilirubin Negative (Negative) Urine Urobilinogen Normal mg/dL (Negative) Urine Leukocyte Esterase Negative /uL (Negative) Urine RBC 1 /hpf (0 - 3) Urine Microscopic WBC 1 /HPF (0-3) Urine Squamous Epithelial Cells None seen /hpf (<5) Urine Bacteria None seen /hpf (None Seen) Urine Glucose Normal mg/dL (Normal) Test 10/31/24 22:02 Lipase 31 U/L (12-53) Plasma/Serum Blood Alcohol < 3.0 mg/dL (<10) Other Laboratory Tests 11/04/24 06:06 Brief Hx & Hospital Course: HPI Patient was a 34-year-old male with no significant past medical history presented to the ED with a chief complaint of abdominal pain for 1 day prior to admission. Patient reported that since the last 2 weeks he has been having decreased appetite with the symptoms of acid reflux, heartburn. He also reported mild dysphagia to solid foods and loss of about 15 lb of weight in the last 2-3 weeks. Saturday evening he started to have sudden onset right sided abdominal pain upper to the lower quadrant and also felt the pain in the right side of the back around the costovertebral angle. Patient denied any radiation to the groin. No dysuria or hematuria, no diarrhea, no fever or chills. Patient denied nausea or vomiting. Patient reported in 2019 he had episode of blood in stool following which he was hospitalized but he never got a colonoscopy done. Past medical history: None Past surgical history: None Social history: Patient lives with the family and denies alcohol use but smokes marijuana occasionally Home medications: None Brief hospital course Patient was admitted to the hospital with a chief complaint of abdominal pain. Patient reported symptoms of dyspepsia, significant weight loss about 15 lb in 2 weeks , dysphagia to solid foods. GI were consulted with a high suspicion of esophageal stricture/ulcer/mass. Patient was initially started on full liquid diet which she tolerated well without any nausea or vomiting. GI recommended doing an upper EGD for which the patient agreed and it showed 0.5 cm sliding- type hiatal hernia, mild gastritis and GE junction was dilated with Ferro number [id number]. After the procedure patient was started on soft mechanical diet which he tolerated well without any abdominal pain, nausea or vomiting. Patient was then discharged in stable condition to home Discharge plan Medications: Protonix 40 mg q.a.m., sucralfate 1 g p.o. b.i.d. Diet: Continue on mechanical soft diet for 3-4 days and advance as tolerated Follow up in the discharge clinic in 1 week and with the GI in the outpatient clinic in 2-4 weeks Consults/Reason for consult GI consultation for suspected gastritis with significant weight loss Operations or Procedures Operative Report DATE OF OPERATION: 11/03/24 PROCEDURE: Upper Endoscopy with biopsy and dilate esophagus unguided PREOPERATIVE INDICATION: The patient is a 34 -year-old male undergoing endoscopy for GERD dysphagia and weight loss POSTOPERATIVE DIAGNOSES: 1. 0.5 cm sliding-type hiatal hernia with no significant erosive esophagitis 2. Mild gastritis otherwise normal examination up to the 2nd and 3rd part of the duodenum 3. GE junction was dilated with Ferro number 44 PROCEDURE PERFORMED BY: Francois Bryant GI NURSE: Manuela SCOPE: Olympus videoendoscope. ASA CLASS: 2 PREOPERATIVE MEDICATIONS: Anesthesia as per Dr. Arizmendi; MAC had to be converted to GA PROCEDURE IN DETAIL: After obtaining an informed consent, the patient was placed on left lateral decubitus position. The patient was then sedated with the above medications. A bite block was placed between his teeth. The endoscope was then passed through the oropharynx, into the esophagus, and through the stomach and pylorus up to the second and third part of the duodenum. The endoscope was then withdrawn. The 2nd and 3rd part of the duodenal and the duodenal bulb were normal. Duodenal biopsies were obtained The pre-pyloric area and antrum showed mild gastritis. Gastric biopsies were obtained. On retroflexion the fundus cardia and angularis were normal. The endoscope was then withdrawn into the distal esophagus. Patient had a 0.5 cm sliding-type hiatal hernia with slightly irregular squamocolumnar junction but no significant esophagitis no stricture The remaining distal and proximal esophagus and oropharynx were unremarkable. The endoscope was then withdrawn. I passed a Ferro dilator number 44 with no significant resistance. Repeat endoscopy confirmed adequate dilatation. There was no mucosal injury or bleeding. GE junction biopsies were obtained. The patient tolerated the procedure well without difficulty. COMPLICATIONS : None SPECIMENS: Duodenal biopsies Gastric biopsies GE junction biopsies DISPOSITION: Transfer back to the floor Stable PLAN: 1. Await for biopsy result 2. Will place pt on Protonix 40 mg po daily 3. Soft mechanical diet advance as tolerated 4. DC aspirin NSAIDs smoking alcohol 5. Patient had high tolerance to sedatives and has suspected to have possible polysubstance abuse or possible alcohol FRANCOIS BRYANT MD Nov 03, 2024 14:59 Condition at Discharge: Good Final Diagnosis/Problems List Acute intractable abdominal pain Dyspepsia Acute gastritis with significant weight loss Distended gallbladder, ruled out acute cholecystitis S/p Upper EGD with esophageal dilataion Discharge Disposition: Home Discharge Instruct/Medications Diet: See Comment Diet comment: soft mechanical diet for 4-5 days and then advance diet as tolerated Activity: No Restrictions, As Tolerated Follow Up/Referral: Follow up in the discharge clinic in 2 weeks Follow up in the GI outpatient clinic with Dr. Jackson Bryant in 4 weeks Medications: as per EMR Discharge Statement: "Patient was advised to return to the ER or call 911 if any headaches, dizziness, shortness of breath, chest pain, abdominal pain, bleeding, fevers, or worsening of medical condition. Patient was counseled about treatment plan, medications, possible side effects, patientverbalized understanding. All questions were answered to the best of my ability. This discharge took greater then 30 minutes in planning, reviewing documentation, counseling the patient, and discussing with other team members." ASSESSMENT ASSESSMENT Assessment Stomach Pain LEEANN FRAZIER RESIDENT Nov 04, 2024 22:09
== END 2024-11-04 12:17 | disposition home or self-care (01) | DRG 241 ==
LOC: ER 21:45 → EDBD 21:45 → OVERFLOW 11-01 07:50 → CENTRAL 11-01 07:55
PROVIDERS: ADMIT Student in an Organized Health Care Education/Training Program; ATTEND Student in an Organized Health Care Education/Training Program
PROC: 0DB68ZX Excision of Stomach, Via Natural or Artificial Opening Endoscopic, Diagnostic (ICD-10-PCS; 2024-11-03)
PROC: 0DB48ZX Excision of Esophagogastric Junction, Via Natural or Artificial Opening Endoscopic, Diagnostic (ICD-10-PCS; 2024-11-03)
PROC: 0DB98ZX Excision of Duodenum, Via Natural or Artificial Opening Endoscopic, Diagnostic (ICD-10-PCS; principal; 2024-11-03 14:23)
DX: K29.00 Acute gastritis without bleeding (principal); D72.829 Elevated white blood cell count, unspecified; K21.9 Gastro-esophageal reflux disease without esophagitis; F17.200 Nicotine dependence, unspecified, uncomplicated; R13.10 Dysphagia, unspecified; F10.10 Alcohol abuse, uncomplicated; Z79.899 Other long term (current) drug therapy
CPT/HCPCS: 36415; 43239; 74176; 76705; 78226; 80048; 80053; 80320; 81001; 83690; 85025; 85610; 85730; 96365; 96375; 99291; G0378; J0330; J2470; J2543; J2704